=== PATIENT | female | born 1940 | race Caucasian/White ===

== ENCOUNTER 2019-05-20 12:02 | Inpatient (IN) ==
[~2019-05-20 12:02] MED LIST: Total Joint Mixture (50 ml) IR ONE
[2019-05-20] MEDS ORDERED: CeFAZolin Syr 2,000MG/20 ML 2,000 MG/20 ML SYRINGE IVPB ONE (12:40)
[2019-05-20] MEDS ORDERED: Ondansetron 4 MG/2 ML VIAL IVP PRN (13:08)
[2019-05-20] MEDS ORDERED: *HR* Promethazine 25 MG/ML VIAL IVP PRN ×2 (13:08→18:11)
[2019-05-20] MEDS: Ringers Solution, Lactated 1,000 ML IVC SCH ×2 (13:17→17:25)
[2019-05-20] MEDS ORDERED: *HR* Propofol 200 MG/20 ML VIAL IVP ONE ×3 (14:34→16:20)
[2019-05-20] MEDS ORDERED: *HR* FentaNYL (PF) 100 MCG/2 ML VIAL ONE (14:34)
[2019-05-20] MEDS ORDERED: Lidocaine -MPF 2% 2 ML VIAL ONE (14:35)
[2019-05-20] MEDS ORDERED: Ethanol\\Acetic Acid\\Na Ace\\Ben 1,000 ML IRRIG.SOLN IR ONE (14:39)
[2019-05-20] MEDS ORDERED: *HR* PHENYLEPHRINE 1,000 MCG/10 ML SYRINGE IVP ONE (15:09)
[2019-05-20] MEDS ORDERED: Tranexamic Acid 1,000 MG/10 ML VIAL ONE ×2 (15:12→15:13)
[2019-05-20] MEDS ORDERED: EPHEDrine 50 MG/ML VIAL ONE (15:26)
[2019-05-20] MEDS ORDERED: Ondansetron 4 MG/2 ML VIAL ONE (15:43)
[2019-05-20] MEDS: *HR* HYDROmorphone (PF) 1 MG/ML SYRINGE IVP PRN ×5 (16:47→17:19)
[2019-05-20 17:37] LABS: Hemoglobin 10.2 g/dL (11.5-15.4)
[2019-05-20] MEDS ORDERED: Dextrose Gel 15 GM/37.5 ML TUBE PO PRN ×2 (18:11)
[2019-05-20] MEDS ORDERED: *HR* Dextrose 50 % in Water (Syg) 50 ML SYRINGE IVP PRN (18:11)
[2019-05-20] MEDS ORDERED: Ringers Solution, Lactated 1,000 ML IVC SCH (18:11)
[2019-05-20] MEDS ORDERED: Sennosides 8.6 MG TABLET PO PRN (18:11)
[2019-05-20] MEDS ORDERED: Naloxone 0.4 MG/ML INJ IVP PRN (18:11)
[2019-05-20] MEDS ORDERED: D5% in Water 1,000 ML IVC PRN (18:11)
[2019-05-20] MEDS ORDERED: MOM Conc 10 ML UD.LIQ PO PRN (18:11)
[2019-05-20] MEDS: Ondansetron 4 MG/2 ML VIAL IVP PRN (18:55)
[2019-05-20] MEDS: Ascorbic Acid 500 MG TABLET PO SCH (19:05)
[2019-05-20] MEDS: Insulin LISPRO 300 UNITS/3 ML VIAL SQ SCH (19:05)
[2019-05-20] MEDS ORDERED: Insulin LISPRO 300 UNITS/3 ML VIAL SQ SCH (21:00)
[2019-05-20] MEDS: ceFAZolin 2,000 MG in 0.9 % Sodium Chloride 100 ML IVPB SCH (22:07)
[2019-05-20] MEDS: GlipiZIDE 5 MG TABLET PO SCH (22:07)
[2019-05-21 05:53] LABS: Basophils % 0.1 %; Hematocrit 33.9 % (35.3-44.9); Hemoglobin 11.1 g/dL (11.5-15.4); Immature Granulocytes % 0.6 % (0-4); Lymphocytes # 0.6 K/mcL (0.6-4.6); Mean Corpuscular HGB Conc 32.7 g/dL (31.6-35.5); Mean Corpuscular Hemoglobin 30.9 pg (28.0-33.3); Mean Corpuscular Volume 94.4 fL (83.0-100.0); Mean Platelet Volume 10.8 fL (9.4-12.4); Monocytes # 0.5 K/mcL (0.0-1.3); Monocytes % 3.5 %; Neutrophils # 13.3 K/mcL (1.6-8.9); Platelet Count 255 K/mcL (140-400); Red Blood Count 3.59 M/mcL (3.82-4.97); Red Cell Distribution Width 12.8 % (11.5-14.5); Segmented Neutrophils % 91.8 %; White Blood Count 14.5 K/mcL (4.3-11.1)
[2019-05-21 06:10] LABS: Calcium 9.1 mg/dL (8.6-10.3); Potassium 5.3 mEq/L (3.5-5.1)
[2019-05-21] MEDS: ceFAZolin 2,000 MG in 0.9 % Sodium Chloride 100 ML IVPB SCH (06:30)
[2019-05-21] MEDS ORDERED: atenoloL 50 MG TABLET PO SCH (09:00)
[2019-05-21] MEDS ORDERED: *HR* SitaGLIPtin 25 MG TABLET PO SCH (09:00)
[2019-05-21] MEDS ORDERED: *HR* Pioglitazone 30 MG TABLET PO SCH (09:00)
[2019-05-21] MEDS ORDERED: NON-FORMULARY MEDICATION 1 EACH EACH (Liraglutide [Victoza 3-Pak] 1.8 MG) SQ SCH (09:00)
[2019-05-21] MEDS: Insulin LISPRO 300 UNITS/3 ML VIAL SQ SCH ×4 (09:07→23:55)
[2019-05-21] MEDS: hydroCHLOROthiazide 25 MG TABLET PO SCH (09:13)
[2019-05-21] MEDS: GlipiZIDE 5 MG TABLET PO SCH (09:13)
[2019-05-21] MEDS: DilTIAZem CD (24hr) 120 MG CAP.ER.24H PO SCH (09:14)
[2019-05-21] MEDS: Cholecalciferol (D-3) 1,000 UNIT (25MCG) TABLET PO SCH (09:14)
[2019-05-21] MEDS: lisinopriL 5 MG TABLET PO SCH (09:14)
[2019-05-21] MEDS: amLODIPine 5 MG TABLET PO SCH (09:14)
[2019-05-21] MEDS: Multivit/Ca/Min/Fe/FA 1 TAB TABLET PO SCH (09:15)
[2019-05-21] MEDS: Ascorbic Acid 500 MG TABLET PO SCH ×2 (09:15→18:20)
[2019-05-21] MEDS: Aspirin Enteric Coated 81 MG Tablet PO SCH (12:00)
[2019-05-21] MEDS ORDERED: Insulin LISPRO 300 UNITS/3 ML VIAL SQ SCH ×2 (15:08→18:00)
[2019-05-21] MEDS: Insulin DETEMIR 100 UNIT/ML X5UNITS SQ SCH (20:23)
[2019-05-21] MEDS: atenoloL 50 MG TABLET PO SCH (20:23)
[2019-05-21] MEDS: HYDROcodone BIT/Homatropine 5 MG TABLET PO PRN (20:23)
[2019-05-22] MEDS: HYDROcodone BIT/Homatropine 5 MG TABLET PO PRN (03:19)
[2019-05-22] MEDS: Insulin LISPRO 300 UNITS/3 ML VIAL SQ SCH ×6 (03:22→23:54)
[2019-05-22 04:34] LABS: Basophils % 0.1 %; Eosinophils # 0.1 K/mcL (0.0-0.6); Eosinophils % 0.4 %; Hematocrit 26.4 % (35.3-44.9); Immature Granulocytes % 0.3 % (0-4); Lymphocytes # 1.7 K/mcL (0.6-4.6); Lymphocytes % 11.6 %; Mean Corpuscular Hemoglobin 30.4 pg (28.0-33.3); Mean Corpuscular Volume 92.3 fL (83.0-100.0); Mean Platelet Volume 10.9 fL (9.4-12.4); Monocytes # 1.8 K/mcL (0.0-1.3); Monocytes % 12.3 %; Platelet Count 214 K/mcL (140-400); Red Blood Count 2.86 M/mcL (3.82-4.97); Red Cell Distribution Width 12.9 % (11.5-14.5); Segmented Neutrophils % 75.3 %; White Blood Count 14.6 K/mcL (4.3-11.1)
[2019-05-22 04:38] LABS: Hemoglobin 8.7 g/dL (11.5-15.4)
[2019-05-22 04:53] LABS: Calcium 8.1 mg/dL (8.6-10.3); Potassium 4.2 mEq/L (3.5-5.1)
[2019-05-22] MEDS: *HR* OxyCODONE Immed Rel 5 MG TABLET PO PRN ×2 (08:22→12:57)
[2019-05-22] MEDS: Multivit/Ca/Min/Fe/FA 1 TAB TABLET PO SCH (08:24)
[2019-05-22] MEDS: Cholecalciferol (D-3) 1,000 UNIT (25MCG) TABLET PO SCH (08:24)
[2019-05-22] MEDS: Ascorbic Acid 500 MG TABLET PO SCH ×2 (08:24→17:14)
[2019-05-22] MEDS: Aspirin Enteric Coated 81 MG Tablet PO SCH (08:24)
[2019-05-22] MEDS: DilTIAZem CD (24hr) 120 MG CAP.ER.24H PO SCH (08:24)
[2019-05-22] MEDS: amLODIPine 5 MG TABLET PO SCH (08:25)
[2019-05-22] MEDS: hydroCHLOROthiazide 25 MG TABLET PO SCH (08:25)
[2019-05-22] MEDS: Ondansetron 4 MG/2 ML VIAL IVP PRN (17:13)
[2019-05-22] MEDS: Ondansetron ODT 4 MG TAB.RAPDIS SL PRN (18:33)
[2019-05-22] MEDS: atenoloL 50 MG TABLET PO SCH (20:39)
[2019-05-22] MEDS: Insulin DETEMIR 100 UNIT/ML X5UNITS SQ SCH (20:39)
[2019-05-23] MEDS: Insulin LISPRO 300 UNITS/3 ML VIAL SQ SCH ×4 (04:39→16:37)
[2019-05-23] MEDS: lisinopriL 5 MG TABLET PO SCH (08:07)
[2019-05-23] MEDS: Ondansetron ODT 4 MG TAB.RAPDIS SL PRN (08:07)
[2019-05-23] MEDS: DilTIAZem CD (24hr) 120 MG CAP.ER.24H PO SCH (08:07)
[2019-05-23] MEDS: Multivit/Ca/Min/Fe/FA 1 TAB TABLET PO SCH (08:07)
[2019-05-23] MEDS: Ascorbic Acid 500 MG TABLET PO SCH ×2 (08:08→15:14)
[2019-05-23] MEDS: Aspirin Enteric Coated 81 MG Tablet PO SCH (08:08)
[2019-05-23] MEDS: hydroCHLOROthiazide 25 MG TABLET PO SCH (08:09)
[2019-05-23] MEDS: amLODIPine 5 MG TABLET PO SCH (08:09)
[2019-05-23] MEDS: Cholecalciferol (D-3) 1,000 UNIT (25MCG) TABLET PO SCH (08:09)
[2019-05-23] MEDS: *HR* OxyCODONE Immed Rel 5 MG TABLET PO PRN (08:17)
[2019-05-23 10:21] LABS: Basophils % 0.2 %; Eosinophils # 0.1 K/mcL (0.0-0.6); Eosinophils % 0.8 %; Hematocrit 30.6 % (35.3-44.9); Hemoglobin 10.2 g/dL (11.5-15.4); Immature Granulocytes % 0.6 % (0-4); Lymphocytes # 2.2 K/mcL (0.6-4.6); Lymphocytes % 16.5 %; Mean Corpuscular HGB Conc 33.3 g/dL (31.6-35.5); Mean Corpuscular Hemoglobin 30.7 pg (28.0-33.3); Mean Corpuscular Volume 92.2 fL (83.0-100.0); Mean Platelet Volume 11.1 fL (9.4-12.4); Monocytes # 1.7 K/mcL (0.0-1.3); Monocytes % 12.6 %; Neutrophils # 9.2 K/mcL (1.6-8.9); Platelet Count 250 K/mcL (140-400); Red Blood Count 3.32 M/mcL (3.82-4.97); Red Cell Distribution Width 12.7 % (11.5-14.5); Segmented Neutrophils % 69.3 %; White Blood Count 13.2 K/mcL (4.3-11.1)
[2019-05-23 10:41] LABS: Calcium 8.7 mg/dL (8.6-10.3); Potassium 4.3 mEq/L (3.5-5.1)
[2019-05-23] MEDS ORDERED: *HR* OxyCODONE Immed Rel 5 MG TABLET PO PRN (14:15)
[2019-05-23 14:52] LABS: Hematocrit 26.9 % (35.3-44.9); Hemoglobin 8.9 g/dL (11.5-15.4)
[2019-05-23] MEDS: Insulin DETEMIR 100 UNIT/ML X5UNITS SQ SCH (20:42)
[2019-05-23] MEDS: atenoloL 50 MG TABLET PO SCH (20:43)
[2019-05-24 03:06] LABS: Basophils % 0.3 %; Eosinophils # 0.2 K/mcL (0.0-0.6); Hematocrit 27.7 % (35.3-44.9); Hemoglobin 8.9 g/dL (11.5-15.4); Immature Granulocytes % 0.5 % (0-4); Lymphocytes # 3.2 K/mcL (0.6-4.6); Lymphocytes % 27.2 %; Mean Corpuscular HGB Conc 32.1 g/dL (31.6-35.5); Mean Corpuscular Hemoglobin 29.7 pg (28.0-33.3); Mean Corpuscular Volume 92.3 fL (83.0-100.0); Mean Platelet Volume 11.7 fL (9.4-12.4); Monocytes # 1.4 K/mcL (0.0-1.3); Monocytes % 11.5 %; Neutrophils # 6.9 K/mcL (1.6-8.9); Platelet Count 231 K/mcL (140-400); Red Cell Distribution Width 12.8 % (11.5-14.5); Segmented Neutrophils % 58.5 %; White Blood Count 11.8 K/mcL (4.3-11.1)
[2019-05-24 03:26] LABS: Calcium 8.7 mg/dL (8.6-10.3); Potassium 4.3 mEq/L (3.5-5.1)
[2019-05-24] MEDS: Insulin LISPRO 300 UNITS/3 ML VIAL SQ SCH ×2 (07:42→12:41)
[2019-05-24] MEDS: hydroCHLOROthiazide 25 MG TABLET PO SCH (08:18)
[2019-05-24] MEDS: lisinopriL 5 MG TABLET PO SCH (08:18)
[2019-05-24] MEDS: amLODIPine 5 MG TABLET PO SCH (08:18)
[2019-05-24] MEDS: Ascorbic Acid 500 MG TABLET PO SCH (08:19)
[2019-05-24] MEDS: DilTIAZem CD (24hr) 120 MG CAP.ER.24H PO SCH (08:19)
[2019-05-24] MEDS: Cholecalciferol (D-3) 1,000 UNIT (25MCG) TABLET PO SCH (08:19)
[2019-05-24] MEDS: Multivit/Ca/Min/Fe/FA 1 TAB TABLET PO SCH (08:19)
[2019-05-24] MEDS: Aspirin Enteric Coated 81 MG Tablet PO SCH (08:19)
[2019-05-24 11:38] VITALS: BP 151/80
== END 2019-05-24 14:27 | DRG 470 ==
LOC: SAMDAY 12:02 → 3NENU 18:05
PROVIDERS: ADMIT Orthopaedic Surgery; ATTEND Orthopaedic Surgery